=== PATIENT | female | born 1990 | race Caucasian/White ===

== ENCOUNTER 2021-03-06 16:37 | Emergency (ER) | payer OTHER ==
[2021-03-06 19:17] LABS: HEMOGLOBIN 14.2 gm/dl (12.3-15.3); RED BLOOD COUNT 4.27 M/UL (4.00-5.10); WHITE BLOOD COUNT 8.7 K/UL (4.5-11.0)
[2021-03-06 19:37] LABS: BUN/CREATININE RATIO 14 (0-10)
[2021-03-06] MEDS ORDERED: KEPPRA1000 MG PO (20:14)
== END 2021-03-06 20:27 | disposition home or self-care (01) ==
LOC: ER1 16:37
PROVIDERS: Family Medicine
DX: G40.909 Epilepsy, unspecified, not intractable, without status epilepticus (principal); E87.6 Hypokalemia; R51.9 Headache, unspecified; Z79.899 Other long term (current) drug therapy; Z88.8 Allergy status to other drugs, medicaments and biological substances; F17.200 Nicotine dependence, unspecified, uncomplicated
CPT/HCPCS: 70450; 80053; 80307; 81001; 84703; 85025; 96374; 96375; 99284; J1885; J2405

== ENCOUNTER 2021-05-20 11:05 | Emergency (ER) | payer OTHER ==
[~2021-05-20 11:05] MED LIST: KEPPRA1000 MG PO
[2021-05-20 13:24] LABS: HEMOGLOBIN 13.4 gm/dl (12.3-15.3); RED BLOOD COUNT 4.24 M/UL (4.00-5.10)
[2021-05-20 13:39] LABS: BUN/CREATININE RATIO 12 (0-10)
[2021-05-20] MEDS ORDERED: CEPHALEXIN500 M1 PO (20:34)
== END 2021-05-20 20:45 | disposition home or self-care (01) ==
LOC: ER1 11:05
PROVIDERS: Physician Assistant
DX: N39.0 Urinary tract infection, site not specified (principal); G40.909 Epilepsy, unspecified, not intractable, without status epilepticus; R07.9 Chest pain, unspecified; M06.9 Rheumatoid arthritis, unspecified; Z88.8 Allergy status to other drugs, medicaments and biological substances; Z90.49 Acquired absence of other specified parts of digestive tract
CPT/HCPCS: 71045; 80053; 81001; 82550; 82553; 83874; 83880; 84484; 84703; 85025; 93005; 99285

== ENCOUNTER → 2021-05-21 | Outpatient (CLI) | payer OTHER ==
[~2021-05-21] MED LIST changes: +CEPHALEXIN500 M1 PO
== END ==
LOC: KOH-I 10:50
DX: R22.42 Localized swelling, mass and lump, left lower limb (principal)
CPT/HCPCS: 93971

== ENCOUNTER 2021-06-07 09:55 | Emergency (ER) | payer OTHER ==
[2021-06-07 10:54] LABS: HEMOGLOBIN 12.3 gm/dl (12.3-15.3); RED BLOOD COUNT 3.79 M/UL (4.00-5.10); WHITE BLOOD COUNT 6.9 K/UL (4.5-11.0)
[2021-06-07 11:15] LABS: BUN/CREATININE RATIO 12 (0-10)
== END 2021-06-07 12:30 | disposition home or self-care (01) ==
LOC: ER1 09:55
PROVIDERS: Physician Assistant
DX: R07.89 Other chest pain (principal); J45.909 Unspecified asthma, uncomplicated; F17.200 Nicotine dependence, unspecified, uncomplicated; Z90.49 Acquired absence of other specified parts of digestive tract
CPT/HCPCS: 71045; 80053; 82550; 82553; 83874; 84484; 84703; 85025; 93005; 99285

== ENCOUNTER 2021-06-10 20:16 | Emergency (ER) | payer OTHER ==
[2021-06-10 20:54] LABS: HEMOGLOBIN 13.6 gm/dl (12.3-15.3); RED BLOOD COUNT 4.15 M/UL (4.00-5.10); WHITE BLOOD COUNT 12.5 K/UL (4.5-11.0)
[2021-06-10 21:09] LABS: BUN/CREATININE RATIO 12 (0-10)
[2021-06-10] MEDS ORDERED: KEPPRA1000 MG PO (23:50)
== END 2021-06-11 00:52 | disposition home or self-care (01) ==
LOC: ER1 20:16
PROVIDERS: Student in an Organized Health Care Education/Training Program
DX: G40.909 Epilepsy, unspecified, not intractable, without status epilepticus (principal)
CPT/HCPCS: 80053; 80307; 81001; 84703; 85025; 96374; 99285